=== PATIENT | female | born 1960 | race Caucasian/White ===

== ENCOUNTER → 2017-01-17 | Outpatient (CLI) | payer BC ==
--- NOTE | 2017-01-17 17:11 | PCVCIMAG ---
APPROVED REPORT Exam: Stress Echocardiogram Indication: Palpitations Patient Location: Echo lab Stress Nurse: Viviana Alfonso RN Status: routine Ht: 5 ft 5 in HR: 80 bpm BP: 142/80 mmHg Rhythm: NSR Procedure The patient underwent an Exercise Stress Test using the Yovani Protocol. Blood pressure, heart rate, and EKG were monitored. An Echocardiogram was performed by breed to wean production technician in four stages in quad fashion. At peak stress, four selected images were obtained and placed side by side with resting images for comparison. Echo Enhancing Agent Indication: palpitations Stress Test Details Stress Test: Exercise stress testing was performed using a Yovani protocol. HR Resting HR: 80 bpmMax Heart Rate (APMHR): 164 bpm Max HR Achieved: 166 bpmTarget HR (85% APMHR): 139 bpm % of APMHR: 101 HR response to stress: Normal HR response to stress BP Resting BP: 142/80 mmHg Max BP: 150/80 mmHg ECG Resting ECG: Sinus Rhythm Stress ECG: Sinus Rhythm Clinical Reason for Termination: Maximal effort Exercise duration: 10 min sec Highest Stage Achieved: Stage 4: 4.2 mph at 16% grade. Exercise capacity: 13.40 METs Overall Exercise Capacity for Age: Normal Pre-Stress Echo The resting Echocardiogram showed normal left ventricular contractility with an estimated Ejection Fraction of about 55-60%. Normal wall motion in all segments on baseline images. Post-Stress Echo The stress Echocardiogram showed normal left ventricular contractility with an estimated Ejection Fraction of about 60-65%. Normal augmentation of wall motion in all segments on post stress images. Clinical No clinical or ECG evidence for ischemia. Conclusion Clinical Response: Non-ischemic Exercise Capacity: Average Stress ECG Response: Non-ischemic Stress Echo Images: Non-ischemic
== END | disposition home or self-care (01) ==
LOC: PCVCIMAG 13:07
PROVIDERS: ATTEND Internal Medicine Cardiovascular Disease
DX: I10 Essential (primary) hypertension (principal); E78.00 Pure hypercholesterolemia, unspecified
CPT/HCPCS: 93325; 93351

== ENCOUNTER → 2018-05-31 | Outpatient (CLI) | payer BC ==
--- NOTE | 2018-05-31 15:33 | PCVCIMAG ---
APPROVED REPORT Study performed: 05/31/2018 14:41:41 Exam: Stress Echocardiogram Indication: Hypertension, Chest Pain, Hyperlipidemia Stress Nurse: Madison Vyas RN Status: routine Ht: 5 ft 5 in HR: 83 bpm BP: 124/80 mmHg Rhythm: NSR Procedure The patient underwent an Exercise Stress Test using the Yovani Protocol. Blood pressure, heart rate, and EKG were monitored. An Echocardiogram was performed by printer technician in four stages in quad fashion. At peak stress, four selected images were obtained and placed side by side with resting images for comparison. Stress Test Details Stress Test: Exercise stress testing was performed using a Yovani protocol. HR Resting HR: 83 bpmMax Heart Rate (APMHR): 163 bpm Max HR Achieved: 166 bpmTarget HR (85% APMHR): 138 bpm % of APMHR: 101 Recovery HR: 100 bpm HR response to stress: Normal HR response to stress BP Resting BP: 124/80 mmHg Max BP: 160/80 mmHg Recovery BP: 138/62 mmHg BP response to stress: Normal blood pressure response to stress. ECG Resting ECG: Sinus Rhythm Stress ECG: Sinus Bradycardia Recovery ECG: Sinus Rhythm Clinical Reason for Termination: Maximal effort Exercise duration: 9 min 35 sec Highest Stage Achieved: Stage 3: 3.4 mph at 14% grade. Exercise capacity: 12.20 METs Overall Exercise Capacity for Age: Normal Pre-Stress Echo The resting Echocardiogram showed normal left ventricular contractility with an estimated Ejection Fraction of about 55-60%. Normal wall motion in all segments on baseline images. Post-Stress Echo The stress Echocardiogram showed normal left ventricular contractility with an estimated Ejection Fraction of about 60-65%. Normal augmentation of wall motion in all segments on post stress images. Clinical No clinical or ECG evidence for ischemia. Conclusion Clinical Response: Non-ischemic Exercise Capacity: Average Stress ECG Response: Non-ischemic Stress Echo Images: Non-ischemic The left ventricle is normal in size and wall thickness in both the rest and stress images. Other Information Study Quality: Good <Conclusion> The left ventricle is normal in size and wall thickness in both the rest and stress images.
== END | disposition home or self-care (01) ==
LOC: PCVCIMAG 14:40
PROVIDERS: ATTEND Internal Medicine Cardiovascular Disease
DX: R07.9 Chest pain, unspecified (principal); R06.02 Shortness of breath; I10 Essential (primary) hypertension; R94.31 Abnormal electrocardiogram [ECG] [EKG]; E78.00 Pure hypercholesterolemia, unspecified
CPT/HCPCS: 93325; 93351